=== PATIENT | female | born 1965 | race Asian ===

== ENCOUNTER → 2017-04-14 | Outpatient (CLI) | payer BC ==
[~2017-04-14] MED LIST: CIPRO 500MG TA500 MG PO; LORTAB 5/500 501 TAB PO; NORCO 325 MG-51 TAB PO; PERCOCET 5/321 UDTAB PO; PHENERGAN 25 TA25 MG PO; PREVPAC; VALIUM5 MG PO; ZOVIRAX800 MG PO
== END ==
LOC: MC.RAD 10:41
DX: Z12.31 Encounter for screening mammogram for malignant neoplasm of breast (principal)

== ENCOUNTER 2017-04-28 08:22 | Day surgery (SDC) | payer BC ==
[~2017-04-28] VITALS: Ht 162.6 cm; Wt 86.1 kg
[2017-04-28] VITALS (7 sets, daily range): BP systolic 92–130; BP diastolic 73–86; PULSE 62–77; TEMP 97.7–97.8
== END 2017-04-28 12:15 | disposition home or self-care (01) ==
LOC: SDCO 08:22
DX: Z12.11 Encounter for screening for malignant neoplasm of colon (principal); K62.1 Rectal polyp
CPT/HCPCS: J2250; J3010; J7030

== ENCOUNTER → 2018-05-15 | Outpatient (CLI) | payer BC | LOC: MC.RAD 08:55 | DX: Z12.31 Encounter for screening mammogram for malignant neoplasm of breast (principal) ==

== ENCOUNTER 2019-01-17 09:00 | Outpatient (RCR) | payer OTHER | END 2019-03-26 15:22 | disposition home or self-care (01) | LOC: WSOH 09:00 | DX: M25.562 Pain in left knee (principal); Y99.0 Civilian activity done for income or pay | CPT/HCPCS: 24774; L1810 ==

== ENCOUNTER → 2019-05-16 | Outpatient (CLI) | payer BC | LOC: MC.RAD 13:45 | DX: Z12.31 Encounter for screening mammogram for malignant neoplasm of breast (principal) ==

== ENCOUNTER → 2020-05-13 | Outpatient (CLI) | payer BC | LOC: MC.RAD 09:41 | DX: Z12.31 Encounter for screening mammogram for malignant neoplasm of breast (principal) ==

== ENCOUNTER → 2020-09-30 | Outpatient (CLI) | payer BC | LOC: COL.RAD 12:22 | DX: E01.0 Iodine-deficiency related diffuse (endemic) goiter (principal) ==

== ENCOUNTER → 2021-05-17 | Outpatient (CLI) | payer BC | LOC: MC.RAD 07:28 | DX: Z12.31 Encounter for screening mammogram for malignant neoplasm of breast (principal) ==

== ENCOUNTER → 2022-05-18 | Outpatient (CLI) | payer BC | LOC: MC.RAD 10:00 | DX: Z12.31 Encounter for screening mammogram for malignant neoplasm of breast (principal) ==

== ENCOUNTER → 2024-06-06 | Outpatient (CLI) | payer BC | LOC: MC.RAD 14:19 | DX: Z12.31 Encounter for screening mammogram for malignant neoplasm of breast (principal) ==